=== PATIENT | male | born 1990 | race Caucasian/White ===

== ENCOUNTER 2016-04-20 18:18 | Emergency (ER) | payer OTHER ==
[2016-04-20 18:27] VITALS: BP 96/61; PULSE 84; TEMP 98.1; BMI 31.0
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
== END 2016-04-20 19:09 | disposition home or self-care (01) ==
LOC: FER 18:18
DX: B34.9 Viral infection, unspecified (principal)
CPT/HCPCS: 99281-25

== ENCOUNTER 2016-07-18 05:02 | Emergency (ER) | payer OTHER ==
[2016-07-18 05:14] VITALS: BP 120/82; PULSE 74; TEMP 97.7; BMI 31.6
[2016-07-18] MEDS ORDERED: NAPROXEN 500 MG TABLET (FP) PO ONE (05:16)
[2016-07-18] MEDS ORDERED: NAPROXEN 500 MG TABLET (FP) ONE (05:17)
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
== END 2016-07-18 05:28 | disposition home or self-care (01) ==
LOC: FER 05:02
DX: M54.32 Sciatica, left side (principal); Z87.828 Personal history of other (healed) physical injury and trauma
CPT/HCPCS: 99281-25

== ENCOUNTER 2016-08-22 01:36 | Emergency (ER) | payer OTHER ==
[2016-08-22 01:42] VITALS: BP 126/59; PULSE 74; TEMP 98.3; BMI 31.6
--- NOTE | 2016-08-22 02:11 | PDOC ---
History of Present Illness - General Chief Complaint: Rash Stated Complaint: RASH TO GROIN AREA SINCE FEBRUARY Time Seen by Provider: 08/22/16 01:41 - History of Present Illness Initial Comments: This 26-year-old man with no significant past medical history presents with a few month history of intermittent,pruritic erythematous groin rash. Patient states that symptoms are worse when it is warm outside and patient is sweating. He has been using [id number] hydrocortisone cream with little alleviation of his itching. Patient also has intermittent mild athlete's foot. 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 Patient states that he has not had any recent cold/flu symptoms. He does smoke marijuana daily. He does not have a cough currently. . Past History - Past Medical History Allergies/Adverse Reactions: Allergies Allergy/AdvReac Type Severity Reaction Status Date / Time No Known Allergies Allergy Verified 08/22/16 01:37 Home Medications: Ambulatory Orders No Home Medications 0 dose .ROUTE UTDICT 11/14/11 Clotrimazole [Lotrimin AF] 1 gm TP BID #1 tube 08/22/16 Miconazole Nitrate [Desenex] 1 gm TP BID #1 canister 08/22/16 Anemia: No Asthma: No Cancer: No Cardiac Disorders: No CVA: No COPD: No Dementia: No Diabetes: No Dialysis: No GI Disorders: No Disorders: No HTN: No Hypercholesterolemia: No HIV: No Kidney Stones: No Liver Disease: No Suicide Attempt (Hx): No Seizures: No Thyroid Disease: No - Psycho/Social/Smoking Cessation Hx Anxiety: No Suicidal Ideation: No Smoking Status: Yes Smoking History: Never smoked Have you smoked in the past 12 months: No Number of Cigarettes Smoked Daily: 0 Information on smoking cessation initiated: No Hx Alcohol Use: No Drug/Substance Use Hx: No Substance Use Type: Marijuana Review of Systems - Review of Systems Able to Perform ROS?: Yes Comments:: 12 point review of systems is negative except for what is noted in the history of present illness *Physical Exam - Vital Signs Last Vital Signs Temp Pulse Resp BP Pulse Ox 98.3 F 74 18 126/59 99 08/22/16 01:38 08/22/16 01:38 08/22/16 01:38 08/22/16 01:38 08/22/16 01:38 - Physical Exam Comments: GENERAL: Adult male, alert and oriented 3, in no acute distress HEAD: Normal with no signs of trauma. EYES: PERRLA, EOMI, sclera anicteric, conjunctiva clear. ENT: Ears normal, nares patent, oropharynx clear without exudates. Dry mucous membranes. NECK: Normal range of motion, supple without lymphadenopathy, JVD, or masses. LUNGS: Breath sounds equal, clear to auscultation bilaterally. No wheezes, and no crackles. HEART:Regular rate and rhythm, normal S1 and S2 without murmur, rub or gallop. ABDOMEN:.normal bowel sounds No guarding,tenderness or rebound.No masses No distention. EXTREMITIES: Normal range of motion, no edema. No clubbing or cyanosis. No erythema, or tenderness. NEUROLOGICAL: Cranial nerves II through XII grossly intact. Normal speech. No focal neurological deficits. MUSCULOSKELETAL: Back non-tender to palpation, no CVA tenderness SKIN: Flat, erythematous, sharply demarcated area of rash right and left inguinal areas with small extension of erythema to the right side of the scrotum. There are faint shallow, linear excoriations but no open wound/ vesicles/ulcers. No edema or fluctuance noted Progress Note - Progress Note Progress Note: Clinical presentation most consistent with tinea cruris. Since the patient has intermittent itching and rash of his feet he probably also has tinea corporis involving his feet. Prescription for clotrimazole cream to be used twice a day for 2 weeks was transmitted to patient's pharmacy ( patient given a few refills). Also, Desitin powder was also recommended for the patient's for rash. He should plan on following up with his general medical doctor within the next week, both for follow-up check on his rash as well as his complaints of ear fullness and intermittent shortness of breath(HEENT exam and lung exam was normal today) *DC/Admit/Observation/Transfer Diagnosis at time of Disposition: Tinea cruris - Discharge Dispostion Disposition: HOME Condition at time of disposition: Stable - Prescriptions Prescriptions: Miconazole Nitrate [Desenex] 1 gm TP BID #1 canister Clotrimazole [Lotrimin AF] 1 gm TP BID #1 tube - Patient Instructions Printed Discharge Instructions: Melanick Itch Additional Instructions: Keep groin and feet as dry as possible Lotrimin cream twice a day to groin rash for the next 2 weeks Desenex powder twice a day to feet next 2 weeks Follow-up with your general doctor within the next week Return to ER if you have worsening redness/swelling or areas becomes painful
== END 2016-08-22 02:19 | disposition home or self-care (01) ==
LOC: FER 01:36
DX: B35.6 Tinea cruris (principal)
CPT/HCPCS: 99281-25

== ENCOUNTER 2017-10-28 02:12 | Emergency (ER) | payer OTHER ==
[2017-10-28 02:23] VITALS: BP 115/66; PULSE 88; TEMP 98.6; BMI 32.5
--- NOTE | 2017-10-28 02:31 | PDOC ---
History of Present Illness - General Chief Complaint: Respiratory Stated Complaint: COUGH Time Seen by Provider: 10/28/17 02:21 - History of Present Illness Initial Comments: This 27-year-old man with no significant past medical history, daily marijuana smoker, presents with one-week history of cough productive of greenish/yellow sputum, intermittent chest tightness/shortness of breath with exertion since cough started. No fever/chills. No antecedent upper respiratory symptoms. Patient has no previous history of asthma; he does not smoke tobacco. No history of alcohol or other recreational drug use Past History - Past Medical History Allergies/Adverse Reactions: Allergies Allergy/AdvReac Type Severity Reaction Status Date / Time No Known Allergies Allergy Verified 08/22/16 01:37 Home Medications: Ambulatory Orders No Home Medications 0 dose .ROUTE UTDICT 11/14/11 Albuterol Sulfate Inhaler - [Ventolin HFA Inhaler -] 2 inh PO Q6H PRN #1 inh 07/12 Azithromycin [Zithromax 250mg Tablets -] 250 mg PO UTDICT #6 tab 10/28/17 Anemia: No Asthma: No Cancer: No Cardiac Disorders: No CVA: No COPD: No Dementia: No Diabetes: No Dialysis: No GI Disorders: No Disorders: No HTN: No Hypercholesterolemia: No Kidney Stones: No Liver Disease: No Seizures: No Thyroid Disease: No - Suicide/Smoking/Psychosocial Hx Smoking Status: Yes Smoking History: Never smoked Have you smoked in the past 12 months: No Number of Cigarettes Smoked Daily: 0 Hx Alcohol Use: No Drug/Substance Use Hx: No Substance Use Type: Marijuana Review of Systems - Review of Systems Able to Perform ROS?: Yes Comments:: 12 point review of systems is negative except for what is noted in the history of present illness *Physical Exam - Vital Signs Last Vital Signs Temp Pulse Resp BP Pulse Ox 98.6 F 88 16 115/66 99 10/28/17 02:19 10/28/17 02:19 10/28/17 02:19 10/28/17 02:19 10/28/17 02:19 *DC/Admit/Observation/Transfer Diagnosis at time of Disposition: Bronchitis - Discharge Dispostion Disposition: HOME Condition at time of disposition: Stable - Prescriptions Prescriptions: Albuterol Sulfate Inhaler - [Ventolin HFA Inhaler -] 2 inh PO Q6H PRN #1 inh PRN Reason: Wheezing Azithromycin [Zithromax 250mg Tablets -] 250 mg PO UTDICT #6 tab - Referrals - Patient Instructions Printed Discharge Instructions: DI for Acute Bronchitis Additional Instructions: Rest; drink plenty of fluids Azithromycin (Z-Rafita): Take as directed, starting in the morning Albuterol inhaler: 2 puffs every 6 hours as needed for wheezing/shortness of breath Follow-up with your doctor within the next 3-4 days as discussed Return to emergency room if you have extreme shortness of breath/high fever/ severe cough - Post Discharge Activity
[2017-10-28] MEDS ORDERED: ALBUTEROL SO4 2.5/IPRATROPIUM 0.5 INH SOL 3 ML VIAL.NEB. NEB ONE ×2 (02:42→02:43)
== END 2017-10-28 03:18 | disposition home or self-care (01) ==
LOC: FER 02:12
PROC: 3E0F7GC Introduction of Other Therapeutic Substance into Respiratory Tract, Via Natural or Artificial Opening (ICD-10-PCS; principal; 2017-10-28)
DX: J40 Bronchitis, not specified as acute or chronic (principal); F12.90 Cannabis use, unspecified, uncomplicated; F17.210 Nicotine dependence, cigarettes, uncomplicated
CPT/HCPCS: 99281-25; J7620

== ENCOUNTER 2018-01-23 15:00 | Emergency (ER) | payer OTHER ==
--- NOTE | 2018-01-23 15:04 | PDOC ---
Rapid Medical Evaluation Chief Complaint: Suture/Staple Removal(Here) Time Seen by Provider: 01/23/18 15:02 Medical Evaluation: Allergies Allergy/AdvReac Type Severity Reaction Status Date / Time No Known Allergies Allergy Verified 01/23/18 15:02 01/23/18 15:03 Pt presents to the ED for suture removal. Pt initially had the stitches placed at [facility] in his r pinky finger. Exam: NAD, ambulatory Orders: Nothing Pt to proceed to the ED for further evaluation Discharge Disposition - Diagnosis Visit for suture removal - Referrals - Patient Instructions - Post Discharge Activity
[2018-01-23 15:06] VITALS: BP 117/78; PULSE 92; TEMP 98.6; BMI 31.0
--- NOTE | 2018-01-23 15:21 | PDOC ---
History of Present Illness - General Chief Complaint: Suture/Staple Removal (other) Stated Complaint: Suture/Staple Removal (other) Time Seen by Provider: 01/23/18 15:02 - History of Present Illness Initial Comments: 01/23/18 15:19 27-year-old male presents for evaluation of suture removal of the right fifth digit. He had sutures placed 10 days ago and outside hospital he's had no, patient since. Past History - Past Medical History Allergies/Adverse Reactions: Allergies Allergy/AdvReac Type Severity Reaction Status Date / Time No Known Allergies Allergy Verified 01/23/18 15:02 Home Medications: Ambulatory Orders No Home Medications 0 dose .ROUTE UTDICT 11/14/11 Anemia: No Asthma: No Cancer: No Cardiac Disorders: No CVA: No COPD: No Dementia: No Diabetes: No Dialysis: No GI Disorders: No Disorders: No HTN: No Hypercholesterolemia: No Kidney Stones: No Liver Disease: No Seizures: No Thyroid Disease: No - Suicide/Smoking/Psychosocial Hx Smoking Status: Yes Smoking History: Never smoked Have you smoked in the past 12 months: No Number of Cigarettes Smoked Daily: 0 Hx Alcohol Use: No Drug/Substance Use Hx: No Substance Use Type: Marijuana Review of Systems - Review of Systems All Other Systems: Reviewed and Negative *Physical Exam - Vital Signs Last Vital Signs Temp Pulse Resp BP Pulse Ox 98.6 F 92 H 18 117/78 98 01/23/18 15:03 01/23/18 15:03 01/23/18 15:03 01/23/18 15:03 01/23/18 15:03 - Physical Exam Comments: There is a centimeter laceration on the ulnar aspect of the right fifth finger [address] normal surrounding skin color and temperature the laceration is healed 01/23/18 15:20 Medical Decision Making - Medical Decision Making 01/23/18 15:20 5 sutures were removed with an 11 blade and Adson forceps without complication *DC/Admit/Observation/Transfer Diagnosis at time of Disposition: Visit for suture removal - Discharge Dispostion Disposition: HOME Condition at time of disposition: Stable Decision to Admit order: No - Referrals Referrals: Clarence Jackson MD [Staff Physician] - - Patient Instructions Printed Discharge Instructions: DI for Suture Removal Additional Instructions: Keep the area clean with soap and water return to the emergency room should symptoms worsen or go unresolved. Follow-up with hand surgery if you have any further issues. - Post Discharge Activity
== END 2018-01-23 15:23 | disposition home or self-care (01) ==
LOC: JER 15:00 → JERFT 15:00
DX: Z48.02 Encounter for removal of sutures (principal)
CPT/HCPCS: 99281-25

== ENCOUNTER 2018-09-02 20:08 | Emergency (ER) | payer OTHER | END 2018-09-02 22:23 | disposition home or self-care (01) | LOC: FER 20:08 ==

== ENCOUNTER 2022-02-23 00:09 | Emergency (ER) | payer OTHER ==
[2022-02-23 00:16] VITALS: BP 110/72; PULSE 84; RESP 17; BMI 27.9
[2022-02-23 01:43] LABS: PH,URINE 5.5 (5.0-8.0); URINE APPEARANCE CLEAR; URINE BILIRUBIN NEGATIVE (NEGATIVE); URINE COLOR YELLOW; URINE GLUCOSE (UA) NEGATIVE (NEGATIVE); URINE KETONE TRACE (NEGATIVE); URINE LEUK ESTERASE NEGATIVE (NEGATIVE); URINE NITRITE NEGATIVE (NEGATIVE); URINE PROTEIN NEGATIVE (NEGATIVE)
[2022-02-23 01:51] LABS: BASO % 0.6 % (0-2.0); EOS % 0.7 % (0-4.5); HEMATOCRIT 46.8 % (35.4-49); HEMOGLOBIN 15.4 GM/dL (11.7-16.9); LYMPH % 40.7 % (8-40); MCH 30.1 pg (25.7-33.7); MCHC 32.9 g/dl (32.0-35.9); MEAN CELL VOLUME 91.4 fl (80-96); MEAN PLT VOLUME 8.7 fl (7.5-11.1); MONO % 9.4 % (3.8-10.2); NEUT % 48.6 % (42.8-82.8); PLATELET COUNT 259 10^3/uL (134-434); RBC 5.12 M/mm3 (4.00-5.60); RDW 13.1 % (11.9-15.9); WHITE BLOOD COUNT 4.9 K/mm3 (4.0-10.0)
[2022-02-23 02:24] LABS: CALCIUM 8.9 mg/dL (8.5-10.1)
[2022-02-23 02:25] LABS: ALBUMIN 3.9 g/dl (3.4-5.0); BLOOD UREA NITROGEN 13.6 mg/dL (7-18)
[2022-02-23 02:28] LABS: CREATININE 1.2 mg/dL (0.55-1.3)
[2022-02-23 02:29] LABS: BILIRUBIN,TOTAL 0.4 mg/dL (0.2-1); TOT PROT 7.3 g/dl (6.4-8.2)
== END 2022-02-23 04:50 | disposition home or self-care (01) ==
LOC: FER 00:09
DX: K59.00 Constipation, unspecified (principal); R10.84 Generalized abdominal pain
CPT/HCPCS: 36415; 71046-TC-FY; 74177-TC; 80053; 81003; 83690; 84484; 85025; 93005; 99285-25; Q9967

== ENCOUNTER 2023-04-28 22:14 | Emergency (ER) | payer OTHER ==
[2023-04-28 22:24] VITALS: BP 125/80; PULSE 95; RESP 16; TEMP 98.3; BMI 28.1
[2023-04-28] MEDS ORDERED: ACETAMINOPHEN 500 MG TABLET (FP) PO ONE (23:03)
[2023-04-28] MEDS ORDERED: ACETAMINOPHEN 500 MG TABLET (FP) ONE (23:04)
== END 2023-04-29 00:03 | disposition home or self-care (01) ==
LOC: FER 22:14
DX: S83.92XA Sprain of unspecified site of left knee, initial encounter (principal); V89.2XXA Person injured in unspecified motor-vehicle accident, traffic, initial encounter
CPT/HCPCS: 73560-TC-LT-FY; 99283-25

== ENCOUNTER 2024-02-04 10:46 | Emergency (ER) | payer OTHER ==
[2024-02-04 10:52] VITALS: BP 101/76; PULSE 96; RESP 18; TEMP 98.8; BMI 27.9
[2024-02-04] MEDS ORDERED: DIPHTH,PERTUSS(ACELL),TET 0.5 ML DISP.SYRIN IM ONE (11:33)
[2024-02-04] MEDS: DIPHTH,PERTUSS(ACELL),TET 0.5 ML DISP.SYRIN IM ONE (11:38)
[2024-02-04] MEDS ORDERED: IBUPROFEN 600 MG TABLET (FP) PO ONE (12:06)
[2024-02-04] MEDS ORDERED: AMOX TR/POT CLAV 875MG/125MG TABLETS (FP) ONE (12:06)
[2024-02-04] MEDS: IBUPROFEN 600 MG TABLET (FP) PO ONE (12:07)
[2024-02-04] MEDS: AMOX TR/POT CLAV 875MG/125MG TABLETS (FP) PO ONE (12:07)
== END 2024-02-04 12:14 | disposition home or self-care (01) ==
LOC: JER 10:46
PROC: 3E0234Z Introduction of Serum, Toxoid and Vaccine into Muscle, Percutaneous Approach (ICD-10-PCS; principal; 2024-02-04)
DX: S51.832A Puncture wound without foreign body of left forearm, initial encounter (principal); W54.0XXA Bitten by dog, initial encounter; Z23 Encounter for immunization
CPT/HCPCS: 90471; 90715; 99284-25